=== PATIENT | male | born 1985 | race Caucasian/White ===

== ENCOUNTER 2021-10-22 23:05 | Emergency (ER) | payer BC, OTHER ==
[~2021-10-22] VITALS: Ht 175 cm; Wt 119.0 kg
[2021-10-22 23:15] VITALS: BP 191/131
[2021-10-22] MEDS ORDERED: LISI20TA26 (23:22)
--- NOTE | 2021-10-22 23:36 | ED Upper Extremity ---
General Chief Complaint: Upper Extremity Stated Complaint: LEFT ARM PAIN Nursing Triage Note: hit in distal forearm by softball approx. 2200. Source: patient History of Present Illness Date Seen by Provider: Oct 22, 2021 Time Seen by Provider: 23:20 Initial Comments PT ARRIVES VIA POV WAS PLAYING SOFTBALL TONIGHT, PLAYING 3RD BASE, AND WAS TRYING TO CATCH A HIT BALL, AND THE BALL HIT IS LEFT ANTERIOR WRIST/FOREARM AREA STATES HE "FELT A POP" IN THE AREA OCCURRED AT 2215 TONIGHT HAS SLIGHT TINGLING OF 3RD AND 4TH FINGERS, BUT NO MOTOR DEFICITS AND CAN MAKE A FULL FIST. PAIN IS INCREASED WITH MOVEMENT OF HIS THUMB HAS NOT TAKEN ANYTHING FOR PAIN OR APPLIED ICE, BUT DID WRAP IT WITH AN CARLEE WRAP NO PRIOR INJURY TO THIS HAND/WRIST/ARM PT IS RIGHT HANDED PCP: [facility] [place]. Allergies and Home Medications Allergies Coded Allergies: No Known Drug Allergies (Unverified , 10/22/21) Patient Home Medication List Lisinopril (Lisinopril) 20 Mg Tablet, (Reported) Entered as Reported by: RILEY HYMAN on 10/22/212321 Last Action: New Order Review of Systems Constitutional: no symptoms reported Musculoskeletal: see HPI Skin: other (SEAM TRIPLETT FROM SOFTBALL ) Psychiatric/Neurological: See HPI Past Irddoub-Rkyrre-Wzzvdp Hx Patient Social History Tobacco Use?: Yes Tobacco type used: Cigarettes Substance use?: No Alcohol Use?: Yes Alcohol Frequency: Rarely Pt feels they are or have been: No Past Medical History Surgery/Hospitalization HX: htn Surgeries: No Respiratory: No Cardiac: Yes Hypertension Neurological: No Genitourinary: No Gastrointestinal: No Musculoskeletal: No Endocrine: No HEENT: No Cancer: No Psychosocial: No Integumentary: No Blood Disorders: No Physical Exam Vital Signs Vital Signs - First Documented 10/22/21 23:15 Temp 37.0 Pulse 88 Resp 18 B/P (MAP) 191/131 (151) Pulse Ox 98 O2 Delivery Room Air Capillary Refill : Less Than 3 Seconds Height, Weight, BMI Height: '" Weight: lbs. oz. kg; 38.00 BMI Method: General Appearance: WD/WN, no apparent distress Elbow/Forearm: Left (ANTERIOR ASPECT OF LEFT WRIST AND DISTAL FOREARM WITH ERYTHEMA, SLIGHT SWELLING AND TENDERNESS. SEAM TRIPLETT FROM SOFTBALL IMPRINTED ON SKIN. FULL ROM. SENSORY/VASCULAR INTACT. NO DEFORMITY NOTED. ) Wrist: Yes pain, Yes soft tissue tenderness, Yes swelling Hand: normal inspection, non-tender, no evidence of injury, normal ROM Neurologic/Tendon: normal sensation, normal motor functions, normal tendon functions Neurologic/Psychiatric: site leasing agent II-XII nml as tested, no motor/sensory deficits, alert, normal mood/affect, oriented x 3 Skin: normal color, warm/dry Progress/Results/Core Measures Results/Orders My Orders Orders - JAMIE GAFFNEY DO Forearm, Left, 2 Views (10/22/21 23:25) Wrist, Left, 3 Views Or More (10/22/21 23:25) Vital Signs/I&O 10/22/21 23:15 Temp 37.0 Pulse 88 Resp 18 B/P (MAP) 191/131 (151) Pulse Ox 98 O2 Delivery Room Air Blood Pressure Mean: 151 Departure Impression Primary Impression: Contusion of left wrist Disposition: HOME, SELF-CARE Condition: Stable Departure-Patient Inst. Decision time for Depature: 00:00 Referrals: KASHIF MORRIS (PCP/Family) Primary Care Physician Patient Instructions: Common Wrist Injuries (DC), Contusion (DC), Splint Care ED Add. Discharge Instructions: ICE TO AREA AT 20 MINUTE INTERVALS WEAR SPLINT NEEDED FOR COMFORT ELEVATE HAND MUCH POSSIBLE FOLLOW UP WITH YOUR DR IN 1 WEEK IF NO BETTER All discharge instructions reviewed with patient and/or family. Voiced understanding. Scripts Naproxen (Naproxen) 500 Mg Tablet. 500 MG PO BID, #20 TAB Prov: JAMIE GAFFNEY DO 10/23/21 JAMIE GAFFNEY DO Oct 22, 2021 23:36
[2021-10-23] MEDS ORDERED: NAPR500T8 PO (00:02)
[2021-10-23] MEDS ORDERED: RX-NAPROXEN (NAPROSYN) 250 MG TAB PPK#4 PO STA (00:03)
--- NOTE | 2021-10-23 07:05 | Diagnostic Imaging Report ---
INDICATION: Left wrist pain. FINDINGS: 3 views. No fractures or dislocation. Articulating surfaces are smooth. Joint spaces well maintained. IMPRESSION: Normal left wrist. Dictated by: Dictated on workstation # [id number]
--- NOTE | 2021-10-23 07:06 | Diagnostic Imaging Report ---
INDICATION: Left forearm pain. FINDINGS: 2 views. No fractures or dislocation. Articulating surfaces are smooth. Joint spaces well maintained. IMPRESSION: Negative left forearm. Dictated by: Dictated on workstation # [id number]
== END 2021-10-23 00:13 | disposition home or self-care (01) ==
LOC: EDUNIT# 23:05 → ER 23:12
DX: S60.212A Contusion of left wrist, initial encounter (principal); W21.07XA Struck by softball, initial encounter; Y93.64 Activity, baseball
CPT/HCPCS: 73090; 73110